=== PATIENT | female | born 1945 | race Hispanic/Latino ===

== ENCOUNTER 2016-11-09 07:17 | Day surgery (SDC) | payer MEDICARE, BC ==
--- NOTE | 2016-11-09 07:38 | HP ---
REASON FOR ADMISSION: Left heart catheterization, abnormal stress test, diabetes, hypertension. BRIEF CLINICAL HISTORY: This is a 70-year-old female with past medical history significant for diabe roman, hypertension, hyperlipidemia, had an abnormal stress test so scheduled for elective cardiac cath and possible angioplasty. Stress test was done because the patient was complaining of chest pain an d dyspnea on exertion. PAST MEDICAL HISTORY: Significant for diabetes, hypertension, hyperlipidemia, calcific aortic stenos is, dyspnea on exertion and chest pain on exertion. SOCIAL HISTORY: Denies smoking. Denies any history of alcohol abuse. CURRENT MEDICATIONS: The patient is taking metformin 500 mg daily, Plavix 75 mg daily, aspirin 81 mg daily, acetaminophen 650 mg, metoprolol succinate, Toprol-XL 100 mg daily, enalapril 10 mg daily. ALLERGIES: CELEBREX, PENICILLIN, CODEINE. RECENT CARDIAC WORKUP: The patient underwent a stress test because of chest pain that showed probabl y abnormal SPECT myocardial perfusion study, partially reversible defect suspicious for ischemia; how ever the effect of changing position of breast cannot be ruled out, dated 10/12/2016. The patient moreno d also echocardiography done on 10/01/2016 that shows ejection fraction 61%, mild mitral regurgitatio n, mild tricuspid regurgitation. REVIEW OF SYSTEMS: As per HPI. PHYSICAL EXAMINATION: VITAL SIGNS: Afebrile. Height of the patient is 5 feet. Weight of the patient is 154 pounds. Body mass index 30.1 kg/m2. Heart rate 60, blood pressure 130/80. HEENT: PERRLA. Extraocular muscles intact. NECK: Supple. No carotid bruits. No thyromegaly. CHEST: Clear to auscultation. HEART: S1, S2 regular. ABDOMEN: Soft. EXTREMITIES: Clubbing and cyanosis negative. BLOOD WORKUP: Pending. IMPRESSION: An abnormal stress test, chest pain, diabetes, hypertension, hyperlipidemia, multiple ve ssel coronary artery disease as well as patient is asymptomatic, and abnormal stress test. Suggest c ardiac catheterization. Further recommendation after cardiac catheterization. Mitral regurgitation, mild tricuspid regurgitation, mild diabetes, hypertension, hyperlipidemia. Will load with Plavix an d proceed for cardiac catheterization; the patient agreed for the procedure. Consent obtained and wi ll proceed for cardiac catheterization. Thank you, Dr. Sarmiento/Dr. Everett, for providing the opportunity in taking care of the patient. Mark Chavira MD cc:Lm Everett MD; Mark Sarmiento MD 305 TT: 11/06/2016 16:12:51 [facility] # [id number] mn 11/09/2016 06:36:32
[2016-11-09 07:47] LABS: ADD MANUAL DIFF? NO
[2016-11-09 07:59] LABS: BLOOD UREA NITROGEN 13 mg/dL (7-21); CALCIUM 9.4 mg/dL (8.4-10.5); CARBON DIOXIDE 28 mmol/L (21-33); CHLORIDE 105 mmol/L (98-107); CHOLESTEROL 174 mg/dL (130-200); GFR AFRICAN-AMERICAN > 60; GLUCOSE,RANDOM 129 mg/dL (70-110); POTASSIUM 4.2 mmol/L (3.6-5.0); SODIUM 143 mmol/L (132-148)
[2016-11-09 08:00] LABS: INR 0.96 (0.93-1.08); PARTIAL THROMBOPLASTIN TIME 29.9 Seconds (23.7-30.8)
[2016-11-09 08:05] LABS: BASO # 0.02 K/mm3 (0.0-2.0); BASO % 0.3 % (0.0-3.0); EOS # 0.4 (0.0-0.7); EOS % 5.1 % (1.5-5.0); GRAN # 4.66 (1.4-6.5); GRAN % 58.2 % (50.0-68.0); HEMATOCRIT 45.8 % (36.0-48.0); LYMPH # 2.3 (1.2-3.4); LYMPH % 28.6 % (22.0-35.0); MEAN CELL VOLUME 88.2 fL (80.0-105.0); MEAN CORPUSCULAR HEMOGLOBIN 28.5 pg (25.0-35.0); MEAN CORPUSCULAR HGB CONC 32.3 g/dl (31.0-37.0); MEAN PLATELET VOLUME 12.2 fl (7.0-11.0); MONO # 0.6 (0.1-0.6); MONO % 7.8 % (1.0-6.0); PLATELET COUNT 232 10^3/uL (120.0-450.0); RED CELL DISTRIBUTION WIDTH 14.1 % (11.5-14.5)
[2016-11-09] MEDS ORDERED: Lidocaine 2% Inj (20ml) ONE (09:24)
[2016-11-09] MEDS ORDERED: Nitroglycerin 50mg in D5W 50 MG/250 ML BOTTLE IV ONE (09:25)
[2016-11-09] MEDS ORDERED: Iodixanol 320 MG/ML 200 ML BOTTLE IV ONE (09:25)
[2016-11-09] MEDS ORDERED: Midazolam 2 MG/2 ML VIAL ONE (10:22)
[2016-11-09] MEDS ORDERED: Bacitracin 500 Units/gm Oint Foilpak UD TOP ONE (11:37)
[2016-11-09] MEDS ORDERED: Sodium Chloride 0.9% 1,000 ML IV SCH (11:45)
[2016-11-09 11:54] VITALS: TEMP 97.9
[2016-11-09] MEDS ORDERED: Bacitracin 500 Units/gm Oint Foilpak UD ONE (14:04)
[2016-11-09 14:25] VITALS: RESP 20
[2016-11-09 14:26] VITALS: O2SAT 98
[2016-11-09 16:25] VITALS: BP 156/94; PULSE 64
--- NOTE | 2016-11-09 17:00 | CARD ---
APPROVED REPORT Procedure(s) performed: Left Heart Catheterization HISTORY The patient is a 70 year-old female with a history of : most recent EF: 62%. (EF Method: RADIONUCLIDE), diabetes mellitus with oral treatment , chronic lung disease, hypertension , dyslipidemia . INDICATION The indication(s) include : positive stress test, chest pain, dyspnea. CASE TECHNIQUE The patient was brought electively to the Cardiac Catheterization Laboratory in a fasting state and was prepped and draped in a sterile manner. The left wrist was infiltrated with 2% Lidocaine subcutaneous anesthesia. A 6 Fr Glidesheath (Radial) sheath was inserted into the left radial artery without difficulty. Coronary angiography was performed using coronary diagnostic catheters. The left coronary system was accessed and visualized with a Diagnostic ,5 Fr JL 3.5 catheter. The right coronary system was accessed and visualized with a Diagnostic ,5 Fr JR 3.5 catheter. The left ventricle was accessed and visualized with a 5 Fr Pigtail 145 (Angled) catheter. Left ventricular/Aortic Valve gradient assessed on pullback. Left ventriculogram was performed in BELTRAN projection. Closure device was deployed with a Fr TR Band (Regular) without any complications. The patient tolerated the procedure well and there were no complications associated with the procedure. Vessel Analysis The patient's coronary anatomy is co-dominant. The left main coronary artery is a large size vessel with intimal irregularities. The left main bifurcates to the left anterior descending and circumflex. The left anterior descending artery is a large size vessel without significant stenosis. But very tortous vessel The first diagonal branch is a medium size vessel without significant stenosis. Very tortous vessel The circumflex artery is a large size vessel with diffuse calcification noted throughout this vessel and without significant stenosis. The first obtuse marginal branch is a medium size vessel with diffuse calcification noted throughout this vessel and without significant stenosis. The second obtuse marginal branch is a small size vessel with diffuse calcification noted throughout this vessel and without significant stenosis. The left posterior descending artery is a medium size vessel with diffuse calcification noted throughout this vessel and with significant stenosis. There is a 50-60% stenosis in the proximal segment. The right coronary artery is a large size vessel with diffuse calcification noted throughout this vessel and without significant stenosis. There is a 40% stenosis in the distal segment. The right posterior descending artery is a medium size vessel with diffuse calcification noted throughout this vessel and without significant stenosis. Left Ventricle The left ventricle is normal in size with normal contractility. There was no cardiomyopathy. The left ventricular ejection fraction is estimated to be 60%. The left ventricular end diastolic pressure is 15 mmHg. There was no gradient across the aortic valve upon pullback. Conclusion Non Obstructive CAD, limited to L PDA 50-60% stenosis. Preserved Lvc Fx. EF-60%, EDP-15 Recommendations Aggressive Medical TherapyCardiac Risk Reduction Program CC; DRs. Sarmiento/ Marguerite.
== END 2016-11-09 16:26 | disposition home or self-care (01) ==
LOC: CATH 07:17
PROVIDERS: ATTEND Internal Medicine Cardiovascular Disease
DX: I25.10 Atherosclerotic heart disease of native coronary artery without angina pectoris (principal); E11.9 Type 2 diabetes mellitus without complications; E78.5 Hyperlipidemia, unspecified; I10 Essential (primary) hypertension; R94.39 Abnormal result of other cardiovascular function study; Z79.82 Long term (current) use of aspirin; Z79.84 Long term (current) use of oral hypoglycemic drugs; Z88.0 Allergy status to penicillin
CPT/HCPCS: 36415; 80048; 80061; 85025; 85610; 85730; 86850; 86900; 93458; 99152; C1769; C1887; J1644 ×2; J2250; J3010; J7040 ×2

== ENCOUNTER 2018-11-24 09:27 | Outpatient (CLI) | payer MEDICARE, BC | END 2018-11-24 09:28 | disposition home or self-care (01) | LOC: RAD 09:27 | DX: Z12.31 Encounter for screening mammogram for malignant neoplasm of breast (principal) ==